=== PATIENT | male | born 1935 | race Caucasian/White ===

== ENCOUNTER 2020-07-10 10:09 | Inpatient (IN) | payer MEDICARE, MEDICAID ==
[2020-07-10 10:28] LABS: #Basophils 0.1 thou/uL (0.0-0.2); #Eosinphils 0.1 thou/uL (0.0-0.7); #Lymphocytes 1.8 thou/uL (1.20-3.40); #Monocytes 0.8 thou/uL (0.11-0.59); #Neutrophils 5.5 thou/uL (1.40-6.50); %Basophils 0.6 % (0.0-1.0); %Eosinophils 1.4 % (0.0-10.0); %Lymphocytes 21.7 % (21.0-51.0); %Monocytes 9.9 % (0.0-10.0); %Neutrophils 66.4 % (42.0-75.0); Hemoglobin 11.8 g/dL (14.0-18.0); Mean Corpuscular HGB CONC 32.7 g/dL (32.0-36.0); Mean Corpuscular Hemoglobin 29.5 pg (27.0-31.0); Mean Platelet Volume 8.1 fL (7.4-10.4); Platelet Count 260 thou/uL (130-400); Red Blood Cell (RBC) Count 4.02 mill/uL (4.70-6.10); White Blood Cell (WBC) Count 8.3 thou/uL (4.8-10.8)
[2020-07-10 10:37] LABS: PTT 32.2 sec (22.9-36.1); Prothrombin Time 13.9 sec (12.0-14.7)
[2020-07-10 10:51] LABS: ALT (SGPT) 13 U/L (8-55); AST (SGOT) 35 U/L (5-34); Albumin 3.8 g/dL (3.4-4.8); Alkaline Phosphatase 119 U/L (40-110); Anion Gap 14 mmol/L (10-20); BUN (Urea Nitrogen) 17 mg/dL (8.4-25.7); Bilirubin, Total 0.4 mg/dL (0.2-1.2); Calc. Creatinine Clearance 0 mL/min (70-130); Calcium 8.9 mg/dL (7.8-10.44); Carbon Dioxide 28 mmol/L (23-31); Chloride 102 mmol/L (98-107); Globulin 2.9 g/dL (2.4-3.5); Glucose 176 mg/dL (83-110); Potassium 3.9 mmol/L (3.5-5.1); Protein, Total 6.7 g/dL (5.8-8.1); Sodium 140 mmol/L (136-145)
[2020-07-10 11:24] LABS: CKMB 9.3 ng/mL (0-6.6)
[2020-07-10] MEDS ORDERED: Acetaminophen 325 MG TAB PO PRN (12:11)
[2020-07-10] MEDS ORDERED: Enoxaparin Sodium 40 MG/0.4 ML SYRINGE ONE (12:17)
[2020-07-10] MEDS ORDERED: Enoxaparin Sodium 30 MG/0.3 ML SYRINGE ONE (12:17)
[2020-07-10] MEDS ORDERED: Aspirin 300 MG Suppository ONE (12:17)
[2020-07-10 13:38] LABS: Hemoglobin A1c 7.2 % (4.0-6.0)
[2020-07-10 13:39] LABS: Critical Call Chem Troponin I RESULT DECREASING; Troponin I 12.094 ng/mL (< 0.028)
[2020-07-10] MEDS ORDERED: Iopamidol-370 76% 500 ML 1 ML ONE (15:15)
[2020-07-10] MEDS: metFORMIN 500 MG TAB PO SCH (16:30)
[2020-07-10] MEDS: Lactated Ringer's 1,000 ML IV SCH (16:32)
[2020-07-10 17:05] LABS: Critical Call Chem Troponin I RESULT DECREASING; Troponin I 11.185 ng/mL (< 0.028)
[2020-07-10] MEDS ORDERED: HumaLOG 300 UNITS/3 ML VIAL SC PRN ×2 (17:21)
[2020-07-10] MEDS ORDERED: Dextrose 5% in Water 1,000 ML IV PRN (17:21)
[2020-07-10] MEDS ORDERED: Dextrose 50% Abboject 50 ML SYRINGE SLOW IVP PRN (17:21)
[2020-07-10] MEDS ORDERED: Carvedilol 3.125 MG TAB PO SCH (21:00)
[2020-07-10] MEDS ORDERED: Polyethylene Glycol OPTH DROP 15 ML BOT EA EYE SCH (21:00)
[2020-07-10] MEDS: Atorvastatin Calcium 20 MG TAB PO SCH (21:02)
[2020-07-10] MEDS ORDERED: Sterile Water 10 ML VIAL FS PRN (22:15)
[2020-07-10] MEDS ORDERED: OLANZapine 10 MG VIAL IM SCH (22:15)
[2020-07-11 01:15] LABS: SARS-CoV-2 PCR by NAA Not Detected (NotDetected)
[2020-07-11] MEDS: Lactated Ringer's 1,000 ML IV SCH ×3 (02:45→21:37)
[2020-07-11 06:02] LABS: #Basophils 0.1 thou/uL (0.0-0.2); #Eosinphils 0.1 thou/uL (0.0-0.7); #Lymphocytes 1.7 thou/uL (1.20-3.40); #Monocytes 0.7 thou/uL (0.11-0.59); #Neutrophils 3.5 thou/uL (1.40-6.50); %Eosinophils 2.2 % (0.0-10.0); %Lymphocytes 27.9 % (21.0-51.0); %Monocytes 11.2 % (0.0-10.0); %Neutrophils 57.8 % (42.0-75.0); Hemoglobin 10.2 g/dL (14.0-18.0); Mean Corpuscular HGB CONC 33.1 g/dL (32.0-36.0); Mean Corpuscular Hemoglobin 29.5 pg (27.0-31.0); Mean Corpuscular Volume 88.9 fL (78.0-98.0); Mean Platelet Volume 8.2 fL (7.4-10.4); Platelet Count 239 thou/uL (130-400); RBC Distribution Width 13.9 % (11.5-14.5); Red Blood Cell (RBC) Count 3.46 mill/uL (4.70-6.10); White Blood Cell (WBC) Count 6.1 thou/uL (4.8-10.8)
[2020-07-11 06:34] LABS: Anion Gap 14 mmol/L (10-20); Calc. Creatinine Clearance 54 mL/min (70-130); Calcium 8.4 mg/dL (7.8-10.44); Carbon Dioxide 23 mmol/L (23-31); Cardiac Risk 3.5 (Less than 4.5); Chloride 104 mmol/L (98-107); Cholesterol 138 mg/dl (< 200 Desired); Glucose 111 mg/dL (83-110); HDL Cholesterol 39 mg/dL (>60 Neg Risk); LDL Cholesterol, Calculated 78 mg/dL; Potassium 3.7 mmol/L (3.5-5.1); Sodium 137 mmol/L (136-145); Triglycerides 106 mg/dL (Less than 150)
[2020-07-11 07:30] LABS: BUN (Urea Nitrogen) 12 mg/dL (8.4-25.7)
[2020-07-11] MEDS: Enoxaparin Sodium 40 MG/0.4 ML SYRINGE SC SCH (08:47)
[2020-07-11] MEDS ORDERED: Aspirin 81 mg Enteric Coated Tablet PO SCH (09:00)
[2020-07-11] MEDS ORDERED: Amlodipine 5 MG TAB PO SCH (09:00)
[2020-07-11] MEDS ORDERED: Aspirin 325 mg Enteric Coated Tablet PO SCH (09:00)
[2020-07-11] MEDS ORDERED: OLANZapine 5 MG TAB PO SCH (09:00)
[2020-07-11] MEDS: Polyethylene Glycol OPTH DROP 15 ML BOT EA EYE SCH ×2 (09:55→21:38)
[2020-07-11] MEDS: Cyanocobalamin (Vitamin B-12) 1,000 MCG TAB PO SCH (12:44)
[2020-07-11] MEDS: metFORMIN 500 MG TAB PO SCH ×2 (12:44→17:51)
[2020-07-11] MEDS: DULoxetine 30 MG CAP PO SCH (12:44)
[2020-07-11] MEDS ORDERED: Aspirin 300 MG Suppository PR SCH (13:15)
[2020-07-11] MEDS: Atorvastatin Calcium 20 MG TAB PO SCH (19:41)
[2020-07-11] MEDS ORDERED: OLANZapine 10 MG VIAL IM SCH (21:00)
[2020-07-11] MEDS: Sterile Water 10 ML VIAL FS SCH (21:38)
[2020-07-11] MEDS: OLANZapine 10 MG VIAL IM SCH (21:38)
[2020-07-12 05:07] LABS: #Eosinphils 0.1 thou/uL (0.0-0.7); #Lymphocytes 1.8 thou/uL (1.20-3.40); #Monocytes 0.7 thou/uL (0.11-0.59); #Neutrophils 4.6 thou/uL (1.40-6.50); %Basophils 0.6 % (0.0-1.0); %Lymphocytes 24.6 % (21.0-51.0); %Monocytes 9.6 % (0.0-10.0); %Neutrophils 64.2 % (42.0-75.0); Hemoglobin 11.6 g/dL (14.0-18.0); Mean Corpuscular HGB CONC 32.6 g/dL (32.0-36.0); Mean Corpuscular Volume 89.1 fL (78.0-98.0); Mean Platelet Volume 7.8 fL (7.4-10.4); Platelet Count 275 thou/uL (130-400); RBC Distribution Width 13.8 % (11.5-14.5); White Blood Cell (WBC) Count 7.1 thou/uL (4.8-10.8)
[2020-07-12 05:31] LABS: Anion Gap 15 mmol/L (10-20); BUN (Urea Nitrogen) 9 mg/dL (8.4-25.7); Calc. Creatinine Clearance 53 mL/min (70-130); Calcium 8.7 mg/dL (7.8-10.44); Carbon Dioxide 26 mmol/L (23-31); Chloride 100 mmol/L (98-107); Glucose 108 mg/dL (83-110); Potassium 3.2 mmol/L (3.5-5.1); Sodium 138 mmol/L (136-145)
[2020-07-12] MEDS ORDERED: Potassium Chloride 40 MEQ in Premix Bag 1 BAG IVPB SCH (06:30)
[2020-07-12] MEDS: Lactated Ringer's 1,000 ML IV SCH (07:54)
[2020-07-12] MEDS: Potassium Chloride 20 MEQ in Premix Bag 1 BAG IVPB SCH ×2 (09:13→11:40)
[2020-07-12] MEDS: Aspirin 300 MG Suppository PR SCH (09:15)
[2020-07-12] MEDS: Enoxaparin Sodium 40 MG/0.4 ML SYRINGE SC SCH (09:15)
[2020-07-12] MEDS: Cyanocobalamin (Vitamin B-12) 1,000 MCG TAB PO SCH (09:15)
[2020-07-12] MEDS: metFORMIN 500 MG TAB PO SCH ×2 (09:15→17:09)
[2020-07-12] MEDS: Polyethylene Glycol OPTH DROP 15 ML BOT EA EYE SCH ×2 (09:17→22:51)
[2020-07-12] MEDS: DULoxetine 30 MG CAP PO SCH (11:41)
[2020-07-12] MEDS: Dextrose 5% in Water 1,000 ML IV SCH (13:45)
[2020-07-12] MEDS ORDERED: Pantoprazole 40 MG VIAL IVP SCH (14:56)
[2020-07-12] MEDS ORDERED: Sodium Chloride 0.9% (PF) 10 ML VIAL FS PRN (15:15)
[2020-07-12] MEDS: Pantoprazole 40 MG VIAL IVP SCH (16:57)
[2020-07-12] MEDS: OLANZapine 10 MG VIAL IM SCH (22:52)
[2020-07-12] MEDS: Sterile Water 10 ML VIAL FS SCH (22:52)
[2020-07-12] MEDS: Atorvastatin Calcium 20 MG TAB PO SCH (22:52)
[2020-07-13] MEDS: Dextrose 5% in Water 1,000 ML IV SCH ×2 (04:26→16:22)
[2020-07-13 05:45] LABS: #Eosinphils 0.1 thou/uL (0.0-0.7); #Lymphocytes 1.2 thou/uL (1.20-3.40); #Monocytes 0.6 thou/uL (0.11-0.59); #Neutrophils 4.6 thou/uL (1.40-6.50); %Basophils 0.7 % (0.0-1.0); %Eosinophils 1.7 % (0.0-10.0); %Lymphocytes 18.2 % (21.0-51.0); %Monocytes 9.5 % (0.0-10.0); %Neutrophils 69.9 % (42.0-75.0); Hemoglobin 11.9 g/dL (14.0-18.0); Mean Corpuscular HGB CONC 33.5 g/dL (32.0-36.0); Mean Corpuscular Hemoglobin 29.6 pg (27.0-31.0); Mean Corpuscular Volume 88.4 fL (78.0-98.0); Platelet Count 272 thou/uL (130-400); RBC Distribution Width 13.9 % (11.5-14.5); Red Blood Cell (RBC) Count 4.02 mill/uL (4.70-6.10); White Blood Cell (WBC) Count 6.5 thou/uL (4.8-10.8)
[2020-07-13] MEDS ORDERED: hydrALAZINE 20 MG/ML VIAL SLOW IVP PRN (05:58)
[2020-07-13 06:17] LABS: Anion Gap 15 mmol/L (10-20); BUN (Urea Nitrogen) 7 mg/dL (8.4-25.7); Calc. Creatinine Clearance 51 mL/min (70-130); Calcium 8.6 mg/dL (7.8-10.44); Carbon Dioxide 22 mmol/L (23-31); Chloride 101 mmol/L (98-107); Glucose 168 mg/dL (83-110); Potassium 3.4 mmol/L (3.5-5.1); Sodium 135 mmol/L (136-145)
[2020-07-13] MEDS: metFORMIN 500 MG TAB PO SCH ×2 (09:38→16:21)
[2020-07-13] MEDS: Polyethylene Glycol OPTH DROP 15 ML BOT EA EYE SCH ×2 (09:40→20:46)
[2020-07-13] MEDS: Cyanocobalamin (Vitamin B-12) 1,000 MCG TAB PO SCH (09:40)
[2020-07-13] MEDS: DULoxetine 30 MG CAP PO SCH (09:40)
[2020-07-13] MEDS: Aspirin 300 MG Suppository PR SCH (09:40)
[2020-07-13] MEDS: Enoxaparin Sodium 40 MG/0.4 ML SYRINGE SC SCH (09:40)
[2020-07-13] MEDS: Pantoprazole 40 MG VIAL IVP SCH (15:59)
[2020-07-13] MEDS: Atorvastatin Calcium 20 MG TAB PO SCH (20:40)
[2020-07-13] MEDS: Sterile Water 10 ML VIAL FS SCH (20:46)
[2020-07-13] MEDS: OLANZapine 10 MG VIAL IM SCH (20:46)
[2020-07-14] MEDS: Dextrose 5% in Water 1,000 ML IV SCH (05:32)
[2020-07-14 05:48] LABS: Anion Gap 12 mmol/L (10-20); BUN (Urea Nitrogen) 5 mg/dL (8.4-25.7); Calc. Creatinine Clearance 45 mL/min (70-130); Calcium 8.7 mg/dL (7.8-10.44); Carbon Dioxide 28 mmol/L (23-31); Chloride 98 mmol/L (98-107); Glucose 158 mg/dL (83-110); Potassium 3.2 mmol/L (3.5-5.1); Sodium 135 mmol/L (136-145)
[2020-07-14 08:41] LABS: Magnesium 1.8 mg/dL (1.6-2.6)
[2020-07-14] MEDS: metFORMIN 500 MG TAB PO SCH ×2 (09:31→17:23)
[2020-07-14] MEDS: Cyanocobalamin (Vitamin B-12) 1,000 MCG TAB PO SCH (09:32)
[2020-07-14] MEDS: Enoxaparin Sodium 40 MG/0.4 ML SYRINGE SC SCH (09:32)
[2020-07-14] MEDS: DULoxetine 30 MG CAP PO SCH (09:32)
[2020-07-14] MEDS: Potassium Chloride 20 MEQ in Premix Bag 1 BAG IVPB SCH ×2 (09:33→14:35)
[2020-07-14] MEDS: Polyethylene Glycol OPTH DROP 15 ML BOT EA EYE SCH ×2 (09:33→21:02)
[2020-07-14] MEDS: Aspirin 300 MG Suppository PR SCH (09:33)
[2020-07-14] MEDS ORDERED: Magnesium 2 GM/50 ML 2 GM in Premix Bag 1 BAG IVPB SCH (11:45)
[2020-07-14] MEDS ORDERED: Carvedilol 3.125 MG TAB PO SCH (12:45)
[2020-07-14] MEDS: Pantoprazole 40 MG VIAL IVP SCH (17:22)
[2020-07-14] MEDS: Carvedilol 3.125 MG TAB PO SCH (17:22)
[2020-07-14] MEDS: Atorvastatin Calcium 20 MG TAB PO SCH (21:01)
[2020-07-14] MEDS: OLANZapine 10 MG VIAL IM SCH (21:02)
[2020-07-14] MEDS: Sterile Water 10 ML VIAL FS SCH (21:02)
[2020-07-15] MEDS: Dextrose 5% in Water 1,000 ML IV SCH ×2 (03:19→20:45)
[2020-07-15] MEDS: Cyanocobalamin (Vitamin B-12) 1,000 MCG TAB PO SCH (08:49)
[2020-07-15] MEDS: Aspirin 300 MG Suppository PR SCH (08:49)
[2020-07-15] MEDS: Carvedilol 3.125 MG TAB PO SCH (08:49)
[2020-07-15] MEDS: metFORMIN 500 MG TAB PO SCH (08:49)
[2020-07-15] MEDS: DULoxetine 30 MG CAP PO SCH (08:50)
[2020-07-15] MEDS: Polyethylene Glycol OPTH DROP 15 ML BOT EA EYE SCH ×2 (08:51→20:46)
[2020-07-15 08:53] LABS: Anion Gap 12 mmol/L (10-20); BUN (Urea Nitrogen) 5 mg/dL (8.4-25.7); Calc. Creatinine Clearance 44 mL/min (70-130); Carbon Dioxide 25 mmol/L (23-31); Chloride 100 mmol/L (98-107); Glucose 161 mg/dL (83-110); Potassium 3.7 mmol/L (3.5-5.1); Sodium 133 mmol/L (136-145)
[2020-07-15] MEDS ORDERED: Lidocaine 1% PF 5 ML VIAL ONE (11:53)
[2020-07-15] MEDS ORDERED: CEFAZOLIN 1 GM VIAL ONE (12:39)
[2020-07-15] MEDS ORDERED: Acetaminophen 325 MG TAB PER TUBE PRN (14:24)
[2020-07-15] MEDS ORDERED: DULoxetine 30 MG CAP PER TUBE SCH (14:30)
[2020-07-15] MEDS ORDERED: Cyanocobalamin (Vitamin B-12) 1,000 MCG TAB PER TUBE SCH (14:30)
[2020-07-15] MEDS: Pantoprazole 40 MG GRANULES PACKET PER TUBE SCH (18:26)
[2020-07-15] MEDS: Carvedilol 3.125 MG TAB PER TUBE SCH (18:26)
[2020-07-15] MEDS: metFORMIN 500 MG TAB PER TUBE SCH (19:01)
[2020-07-15] MEDS: Acetaminophen 650 MG Suppository PR PRN (19:39)
[2020-07-15] MEDS ORDERED: Ondansetron PF 4 MG/2 ML Vial IVP PRN (19:46)
[2020-07-15] MEDS: OLANZapine 10 MG VIAL IM SCH (21:57)
[2020-07-15] MEDS: Atorvastatin Calcium 20 MG TAB PER TUBE SCH (21:57)
[2020-07-15] MEDS: Sterile Water 10 ML VIAL FS SCH (21:57)
[2020-07-16 05:06] LABS: Anion Gap 14 mmol/L (10-20); BUN (Urea Nitrogen) 7 mg/dL (8.4-25.7); Calc. Creatinine Clearance 42 mL/min (70-130); Calcium 8.8 mg/dL (7.8-10.44); Carbon Dioxide 21 mmol/L (23-31); Chloride 100 mmol/L (98-107); Glucose 195 mg/dL (83-110); Potassium 3.6 mmol/L (3.5-5.1); Sodium 131 mmol/L (136-145)
[2020-07-16] MEDS: Acetaminophen 650 MG Suppository PR PRN (05:29)
[2020-07-16] MEDS: Aspirin 325 MG TAB PER TUBE SCH (08:35)
[2020-07-16] MEDS: Cyanocobalamin (Vitamin B-12) 1,000 MCG TAB PER TUBE SCH (08:36)
[2020-07-16] MEDS: Carvedilol 3.125 MG TAB PER TUBE SCH ×4 (08:36→22:14)
[2020-07-16] MEDS: metFORMIN 500 MG TAB PER TUBE SCH ×2 (08:36→16:07)
[2020-07-16] MEDS: DULoxetine 30 MG CAP PER TUBE SCH (08:36)
[2020-07-16] MEDS: Polyethylene Glycol OPTH DROP 15 ML BOT EA EYE SCH ×2 (08:37→22:13)
[2020-07-16] MEDS: Pantoprazole 40 MG GRANULES PACKET PER TUBE SCH (16:07)
[2020-07-16] MEDS: Atorvastatin Calcium 20 MG TAB PER TUBE SCH (22:14)
[2020-07-16] MEDS: OLANZapine 10 MG VIAL IM SCH (22:15)
[2020-07-16] MEDS: Sterile Water 10 ML VIAL FS SCH (22:15)
[2020-07-17 05:52] LABS: Anion Gap 12 mmol/L (10-20); BUN (Urea Nitrogen) 11 mg/dL (8.4-25.7); Calc. Creatinine Clearance 47 mL/min (70-130); Calcium 8.8 mg/dL (7.8-10.44); Carbon Dioxide 24 mmol/L (23-31); Chloride 102 mmol/L (98-107); Glucose 165 mg/dL (83-110); Potassium 3.3 mmol/L (3.5-5.1); Sodium 135 mmol/L (136-145)
[2020-07-17 07:10] VITALS: BMI 25.2
[2020-07-17] MEDS: Potassium Chloride 20 MEQ in Premix Bag 1 BAG IVPB SCH ×2 (09:18→11:27)
[2020-07-17] MEDS: DULoxetine 30 MG CAP PER TUBE SCH (09:20)
[2020-07-17] MEDS: Cyanocobalamin (Vitamin B-12) 1,000 MCG TAB PER TUBE SCH (09:20)
[2020-07-17] MEDS: Aspirin 325 MG TAB PER TUBE SCH (09:20)
[2020-07-17] MEDS: metFORMIN 500 MG TAB PER TUBE SCH ×2 (09:21→16:00)
[2020-07-17] MEDS: Carvedilol 3.125 MG TAB PER TUBE SCH ×2 (09:21→16:00)
[2020-07-17] MEDS: Polyethylene Glycol OPTH DROP 15 ML BOT EA EYE SCH (09:53)
[2020-07-17 11:55] VITALS: TEMP 97.5
[2020-07-17 13:56] VITALS: BP 160/74
[2020-07-17] MEDS: Pantoprazole 40 MG GRANULES PACKET PER TUBE SCH (16:00)
[2020-07-17] MEDS ORDERED: Apixaban 5 MG TAB PER TUBE SCH (21:00)
== END 2020-07-17 16:43 | DRG 65 ==
LOC: ERS 10:09 → ERHOLD 11:27 → 2SE 15:17
PROVIDERS: ADMIT Family Medicine; ATTEND Family Medicine
PROC: 0DH63UZ Insertion of Feeding Device into Stomach, Percutaneous Approach (ICD-10-PCS; principal; 2020-07-15)
DX: I63.511 Cerebral infarction due to unspecified occlusion or stenosis of right middle cerebral artery (principal); G81.94 Hemiplegia, unspecified affecting left nondominant side; F02.81 Dementia in other diseases classified elsewhere, unspecified severity, with behavioral disturbance; N17.9 Acute kidney failure, unspecified; Z51.5 Encounter for palliative care; Z20.822 Contact with and (suspected) exposure to COVID-19; E44.0 Moderate protein-calorie malnutrition; I42.9 Cardiomyopathy, unspecified; G93.49 Other encephalopathy; R47.01 Aphasia; R29.810 Facial weakness; R29.718 NIHSS score 18; I49.5 Sick sinus syndrome; E11.22 Type 2 diabetes mellitus with diabetic chronic kidney disease; K21.9 Gastro-esophageal reflux disease without esophagitis; I12.9 Hypertensive chronic kidney disease with stage 1 through stage 4 chronic kidney disease, or unspecified chronic kidney disease; G30.9 Alzheimer's disease, unspecified; F25.9 Schizoaffective disorder, unspecified; N18.9 Chronic kidney disease, unspecified; I25.10 Atherosclerotic heart disease of native coronary artery without angina pectoris; I65.21 Occlusion and stenosis of right carotid artery; D63.1 Anemia in chronic kidney disease; R13.12 Dysphagia, oropharyngeal phase; K44.9 Diaphragmatic hernia without obstruction or gangrene; I48.0 Paroxysmal atrial fibrillation; E78.00 Pure hypercholesterolemia, unspecified; Z88.8 Allergy status to other drugs, medicaments and biological substances; Z79.84 Long term (current) use of oral hypoglycemic drugs; Z79.899 Other long term (current) drug therapy; Z95.0 Presence of cardiac pacemaker; Z68.25 Body mass index [BMI] 25.0-25.9, adult; I25.2 Old myocardial infarction
CPT/HCPCS: 36415; 36416; 70450; 70496; 70498; 71045; 80048; 80053; 80061; 82553; 83036; 83735; 84100; 84443; 84484; 85025; 85610; 85730; 87635; 93005; 93306; 95712; 95819; 95957; 96372; C9113; J0690; J1650; J2358; J3475; J3480; Q9967; U0003; U0005

== ENCOUNTER 2020-07-27 19:05 | Emergency (ER) | payer MEDICARE, MEDICAID ==
[~2020-07-27 19:05] MED LIST: GASTROGRAFIN 30 ML BOT ONE
== END 2020-07-27 22:12 ==
LOC: ERS 19:05
DX: K94.23 Gastrostomy malfunction (principal); E11.9 Type 2 diabetes mellitus without complications; K21.9 Gastro-esophageal reflux disease without esophagitis; I10 Essential (primary) hypertension; F03.90 Unspecified dementia, unspecified severity, without behavioral disturbance, psychotic disturbance, mood disturbance, and anxiety
CPT/HCPCS: 74018; Q9963